=== PATIENT | male | born 1950 | race Caucasian/White ===

== ENCOUNTER 2020-04-29 01:27 | Outpatient (CLI) | payer MEDICARE, SELFPAY ==
[2020-04-29 16:17] LABS: SARS-CoV-2 RNA PCR Negative
== END 2020-04-29 01:28 | disposition home or self-care (01) ==
LOC: ANHCOVIDDT 01:28
PROVIDERS: PCP Internal Medicine; Visit Provider Internal Medicine Gastroenterology
DX: Z01.812 Encounter for preprocedural laboratory examination (principal); Z11.59 Encounter for screening for other viral diseases
CPT/HCPCS: 87635; C9803; U0003

== ENCOUNTER 2020-05-01 00:57 | Day surgery (SDC) | payer MEDICARE, SELFPAY ==
[2020-04-24 13:33] VITALS: BMI 25.1
[2020-05-01 06:47] VITALS: BP 143/76; PULSE 55; RESP 20; TEMP 36.5; O2SAT 100
[2020-05-01] MEDS: LACTATED RINGERS 1,000 ML 150 ML IV CONT (07:04)
--- NOTE | 2020-05-01 07:51 | WPDANESEPPF ---
Anes - Initial Pre Proc Eval Procedure: Operation Date: 05/01/20 08:00 Proposed Procedures p Screening Colonoscopy - Michael Salazar MD Date/Time: 05/01/20 07:51 Surgeon: Michael Salazar MD Pre Op Diagnosis: hx colon polyps Patient Data Age: 69 Gender: M Height: 5 ft 11 in Weight: 82.9 kg Last Vital Signs Temp 97.7 F 05/01/20 06:47 Pulse 55 L 05/01/20 06:47 Resp 20 05/01/20 06:47 BP 143/76 H 05/01/20 06:47 Pulse Ox 100 05/01/20 06:47 Allergies Allergy/AdvReac Type Severity Reaction Status Date / Time azithromycin Allergy Mild rash Verified 05/01/20 06:46 fentanyl AdvReac Mild Nausea Verified 05/01/20 06:46 Home Medications Medication Instructions Recorded Confirmed Type aspirin 81 mg tablet,delayed 81 mg PO DAILY 08/23/19 04/24/20 History release cholecalciferol (vitamin D3) 25 1,000 unit PO DAILY 08/23/19 04/24/20 History mcg (1,000 unit) capsule fluticasone propionate 50 2 spray NASAL DAILY 08/23/19 04/24/20 History mcg/actuation nasal spray,suspension multivitamin 1 tablet PO DAILY 08/23/19 04/24/20 History calcium carbonate 500 mg calcium 500 mg PO DAILY 08/28/19 04/24/20 History (1,250 mg) tablet denosumab 60 mg/mL subcutaneous 60 mg SUB-Q [id number] 08/28/19 04/24/20 History syringe leuprolide (3 month) 22.5 mg (3 22.5 mg IM [id number] 08/28/19 04/24/20 History month) intramuscular syringe kit cetirizine 10 mg tablet 5 mg PO DAILY 04/05/20 04/24/20 History lactobacillus combination no.4 3 3,000 mmu cells PO DAILY 04/05/20 04/24/20 History billion cell capsule psyllium husk [Metamucil] 1 tbsp PO DAILY 04/24/20 04/24/20 History Patient hx anesthesia problems: none Family hx anesthesia problems: none PMFSH Past Medical History Medical History (Updated 05/01/20 @ 07:49 by Bebo Emery MD) Elevated LDL cholesterol level H/O prostate cancer has mets to the bone Seizure only as teenager; none since Social History Social History Smoking status: Never smoker Second hand tobacco smoke exposure: No Alcohol intake: current Drinks per week: 4 Substance use: never Anes - Eval Final PreProcedure Day of Procedure 05/01/20 07:51 Patient weight: normal Heart: regular rate and rhythm Lungs: clear to auscultation Airway: Mallampati scale class II Neurological: alert and oriented Last oral intake: >/= 8 hours ASA classification: III Emergent: no Anesthetic plan: proceed Anesthesia type and monitoring: general GIVS and standard monitoring Informed Consent: The patient's anesthetic plan and its attendant risks and benefits were discussed with the patient/family/POA. Questions were solicited and answers provided to the satisfaction of the patient/family/POA.
--- NOTE | 2020-05-01 08:08 | WPDGICN ---
Assessment and Plan Assessment and plan (1) History of colon polyps: Code(s): Z86.010 - Personal history of colonic polyps Status: Acute Assessment and Plan: Plan is for surveillance colonoscopy at this time and subsequently every 5 years. (2) Prostate cancer metastatic to bone: Code(s): C61 - Malignant neoplasm of prostate; C79.51 - Secondary malignant neoplasm of bone Status: Acute GI Consult Note Consult date/time: 05/01/20 08:08 HPI: Vargas Alcocer is a 69 year old male seen in evaluation at the request of Dr Devonte Ray. Patient presents for follow-up colonoscopy. Patient has a history of adenomatous colon polyp removed from the colon 2016. Patient states that his current weight appetite bowel movements are normal. Patient denies abdominal pain. He has had no blood in his bowel movements his weight remained stable. Family history is noncontributory. Past medical history is significant for prostate carcinoma for which she has undergone chemotherapy and surgery. Current PSA is reported to be normal. Review of Systems Review of Systems: All systems reviewed & are unremarkable except as noted in HPI and below PMFSH Past Medical History Medical History Elevated LDL cholesterol level H/O prostate cancer has mets to the bone Seizure only as teenager; none since Family History Family History Mother Family history of lung cancer, Onset Age: 69 Patient's mother is Sibling Patient's brother is Social History Social History Smoking status: Never smoker Second hand tobacco smoke exposure: No Alcohol intake: current Drinks per week: 4 Substance use: never Meds Home Medications and Allergies Home Medications Medication Instructions Recorded Confirmed Type aspirin 81 mg tablet,delayed 81 mg PO DAILY 08/23/19 04/24/20 History release cholecalciferol (vitamin D3) 25 1,000 unit PO DAILY 08/23/19 04/24/20 History mcg (1,000 unit) capsule fluticasone propionate 50 2 spray NASAL DAILY 08/23/19 04/24/20 History mcg/actuation nasal spray,suspension multivitamin 1 tablet PO DAILY 08/23/19 04/24/20 History calcium carbonate 500 mg calcium 500 mg PO DAILY 08/28/19 04/24/20 History (1,250 mg) tablet denosumab 60 mg/mL subcutaneous 60 mg SUB-Q [id number] 08/28/19 04/24/20 History syringe leuprolide (3 month) 22.5 mg (3 22.5 mg IM [id number] 08/28/19 04/24/20 History month) intramuscular syringe kit cetirizine 10 mg tablet 5 mg PO DAILY 04/05/20 04/24/20 History lactobacillus combination no.4 3 3,000 mmu cells PO DAILY 04/05/20 04/24/20 History billion cell capsule psyllium husk [Metamucil] 1 tbsp PO DAILY 04/24/20 04/24/20 History Allergies Allergy/AdvReac Type Severity Reaction Status Date / Time azithromycin Allergy Mild rash Verified 05/01/20 06:46 fentanyl AdvReac Mild Nausea Verified 05/01/20 06:46 Vital Signs Vital Signs - 24 hr 05/01/20 06:47 Temperature 97.7 F Pulse Rate 55 L Respiratory Rate 20 Blood Pressure 143/76 H Pulse Oximetry 100 Exam Narrative: Exam Narrative: Physical exam reveals Vital Signs to be stable. HEENT exam unremarkable. Lungs are clear to auscultation and percussion. Heart is without murmur or extra sounds. Abdominal exam bowel sounds present soft nontender with no hepatosplenomegaly. Digital external rectal exam is normal.
[2020-05-01 08:25] VITALS: BP 111/63; PULSE 46; RESP 12; O2SAT 99
[2020-05-01 08:35] VITALS: BP 116/65; PULSE 47; RESP 13; O2SAT 100
[2020-05-01 08:45] VITALS: BP 125/72; PULSE 54; RESP 13; O2SAT 100
== END 2020-05-01 08:59 | disposition home or self-care (01) ==
PROVIDERS: PCP Internal Medicine; Visit Provider Internal Medicine Gastroenterology
PROC: 0DJD8ZZ Inspection of Lower Intestinal Tract, Via Natural or Artificial Opening Endoscopic (ICD-10-PCS; CPT 45378; principal; 2020-05-01 08:00)
DX: Z12.11 Encounter for screening for malignant neoplasm of colon (principal); K57.30 Diverticulosis of large intestine without perforation or abscess without bleeding; K64.8 Other hemorrhoids; Z86.010 Personal history of colon polyps; C79.51 Secondary malignant neoplasm of bone; Z85.46 Personal history of malignant neoplasm of prostate; Z92.21 Personal history of antineoplastic chemotherapy; E78.00 Pure hypercholesterolemia, unspecified; Z79.82 Long term (current) use of aspirin
CPT/HCPCS: G0105; J2704; J7120

== ENCOUNTER 2021-10-20 16:22 | Outpatient (CLI) | payer MEDICARE, SELFPAY ==
--- NOTE | ~2021-10-20 | CT_ITS ---
EXAMINATION: CT brain wo con DATE: 10/20/2021 16:51 INDICATION: Head injury yesterday. Fall from high chair. Struck frontal bone. TECHNIQUE: Computed tomography (CT) of the head was performed without intravenous contrast. The mA wa s adjusted according to patient size. Iterative reconstruction technique was employed. Exam dose: 68 1.00 mGy-cm total exam DLP. COMPARISON: None FINDINGS: No intracranial mass lesion or hemorrhage or cerebrovascular accident. No midline shift or mass effect. No subdural or epidural hematoma. Moderate cerebral and cerebellar volume loss. No fracture or bone destruction of the cranial vault. Included paranasal sinuses and the mastoid air cells are normally developed and aerated. IMPRESSION: No skull fracture or acute intracranial abnormality Reviewed, dictated and finalized at [facility]. Reviewed, dictated and finalized at [facility] [employer] [facility]
== END 2021-10-20 16:23 | disposition home or self-care (01) ==
PROVIDERS: PCP Internal Medicine; Visit Provider Internal Medicine
DX: G44.89 Other headache syndrome (principal); S09.90XA Unspecified injury of head, initial encounter; X58.XXXA Exposure to other specified factors, initial encounter
CPT/HCPCS: 70450